=== PATIENT | female | born 1975 | race Caucasian/White ===

== ENCOUNTER 2017-02-19 20:38 | Emergency (ER) | payer OTHER ==
--- NOTE | 2017-02-27 13:49 | ER ---
ADMIT: 02/19/2017 RM/LOC: ER [facility] MR#: [id number] [id number] [address] [place] [address] Emergency Room Report SEX: F AGE: 41 : 1975 DATE: 02/19/2017 ADDENDUM: CHIEF COMPLAINT: Left ankle sprain. HISTORY OF PRESENT ILLNESS: This is a 41-year-old, who was going down her stairs. She kind of missed the last couple steps and twisted her ankle. An x- ray was done, is negative for any fracture over-read by Dr. Grubbs. CLINICAL IMPRESSION: Left ankle sprain. DISPOSITION: Having her ice, use Tylenol or Motrin for pain. I sent her home with an air splint to wear for the next couple weeks and follow up with primary care physician if the pain worsens. CLINICAL IMPRESSION: Left ankle sprain. BLANCO Buitrago / Hal Grubbs MD / adilia JOB #: [id number] CC: Hal Grubbs MD, Attending Physician
== END 2017-02-19 21:20 | disposition home or self-care (01) ==
LOC: ER 20:38
DX: S93.402A Sprain of unspecified ligament of left ankle, initial encounter (principal); Z88.2 Allergy status to sulfonamides; Z88.8 Allergy status to other drugs, medicaments and biological substances; Z79.899 Other long term (current) drug therapy; X50.1XXA Overexertion from prolonged static or awkward postures, initial encounter; Y92.009 Unspecified place in unspecified non-institutional (private) residence as the place of occurrence of the external cause